=== PATIENT | male | born 2000 | race Two or more races ===

== ENCOUNTER 2025-08-22 11:18 | Emergency (ER) | payer MEDICAID, OTHER ==
[~2025-08-22] VITALS: Ht 180.3 cm; Wt 85.0 kg
[2025-08-22 11:23] VITALS: TEMP 97.9
[2025-08-22 12:25] VITALS: BP 129/75; PULSE 65; RESP 18; O2SAT 98
--- NOTE | 2025-08-22 12:38 | ED.PDOC ---
Foreign Body HPI Comments 25 y/o M, presents to the ED for CC of foreign body. Patient reports, that he had the helix of his left-ear pierced x1week ago and has now developed erythema and swelling to the area. Patient comments, that he believes the earring back has been engulfed by surrounding skin which has now prompted symptoms. Patient reports, taking antibiotics at home with no change in symptoms. Chief Complaint: Foreign Body Time Seen by MD: 12:30 History of Present Illness: Nurses Notes, Medications, Allergies Allergies: Coded Allergies: NO KNOWN ALLERGIES (Unverified , 08/22/25) Information Source: Patient Mode of Arrival: Ambulatory Timing: Weeks Duration: Since onset Severity: Moderate Prehospital treatment: Other (abx) Location: Left, Ear Foreign Body: [place], Other (earring back ) Removal: Was not attempted Associated signs and symptoms: None Past Medical History PAST MEDICAL HISTORY: Denies Surgical History: Denies all surgeries Family History Family History: Unknown Social History Smoker: Non-Smoker Alcohol: Denies ETOH Use Drugs: Denies Drug Use Lives In: Home Constitutional: denies: chills, diaphoresis, fatigue, fever, malaise, sweats, weakness, others EENTM: denies: blurred vision, double vision, ear bleeding, ear discharge, ear drainage, ear pain, ear ringing, eye pain, eye redness, hearing loss, mouth pain, mouth swelling, nasal discharge, nose bleeding, nose congestion, nose pain, photophobia, tearing, throat pain, throat swelling, voice changes, others Respiratory: denies: cough, hemoptysis, orthopnea, SOB at rest, shortness of breath, SOB with excertion, stridor, wheezing, others Cardiovascular: denies: chest pain, dizzy spells, diaphoresis, Dyspnea on exertion, edema, irregular heart beat, left arm pain, lightheadedness, palpitations, PND, syncope, others Gastrointestinal: denies: abdomen distended, abdominal pain, blood streaked bowels, constipated, diarrhea, dysphagia, difficulty swallowing, hematemesis, melena, nausea, poor appetite, poor fluid intake, rectal bleeding, rectal pain, vomiting, others Genitourinary: denies: burning, dysuria, flank pain, frequency, hematuria, incontinence, penile discharge, penile sore, pain, testicle pain, testicle swelling, urgency, others Neurological: denies: dizziness, fainting, headache, left sided numbness, left sided weakness, numbness, paresthesia, pre-existing deficit, right sided numbness, right sided weakness, seizure, speech problems, tingling, tremors, weakness, others Musculoskeletal: denies: back pain, gout, joint pain, joint swelling, muscle pain, muscle stiffness, neck pain, others Integumetry: denies: bruises, change in color, change in hair/nails, dryness, laceration, lesions, lumps, rash, wounds, others Allergic/Immunocompromised: denies: Difficulty Healing, Frequent Infections, Hives, Itching, others Hematologic/Lymphatic: denies: anemia, blood clots, easy bleeding, easy bruising, swollen glands, others Endocrine: denies: excessive hunger, excessive sweating, excessive thirst, excessive urination, flushing, intolerance to cold, intolerance to heat, unexplained weight gain, unexplained weight loss, others Psychiatric: denies: anxiety, bipolar disorder, depression, hopeless, panic disorder, schizophrenia, sleepless, suicidal, others All Other Systems: Reviewed and Negative Physical Exam General Appearance: Moderate Distress HEENT: Pharynx Normal, TMs Normal, Other (Tenderness and redness to the left ear with palpable foreign body) Neck: Full Range of Motion, Non-Tender, Normal, Normal Inspection Respiratory: Chest Non-Tender, Lungs Clear, No Accessory Muscle Use, No Respiratory Distress, Normal Breath Sounds Cardiovascular: No Edema, No JVD, No Murmur, No Gallop, Normal Peripheral Pulses, Regular Rate/Rhythm Breast Exam: Deferred Gastrointestinal: No Organomegaly, Non Tender, No Pulsatile Mass, Normal Bowel Sounds, Soft Genitalia: Deferred Pelvic: Deferred Rectal: Deferred Extremities: No calf tenderness, Normal capillary refill, Normal inspection, Normal range of motion, Non-tender, No pedal edema Musculoskeletal : Apperance: Normal 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 Was a procedure done?: Yes Sedation Sedation?: No Incision and Drainage Incision and Drainage: Other (Foreign body to the top of the left ear) Location Superior aspect of the left ear Anesthetic: Lidocaine Preparation: Betadine, Saline Incision and Wound: Other (Foreign body) Informed consent obtained: No Risks/benefits/alt described: No FB Differential Dx Differential Diagnosis: Foreign Body X-Ray, Labs, Meds, VS Vital Signs Date Time Temp Pulse Resp B/P (MAP) Pulse Ox O2 Delivery O2 Flow Rate FiO2 08/22/25 12:25 65 18 98 Room Air 08/22/25 12:25 65 18 129/75 (93) 98 08/22/25 11:23 97.9 77 18 137/94 96 97.9 The patient had the foreign body removed after the incision was made. At this time, the patient was placed on clindamycin. The patient has already been on Keflex. The patient tolerated the procedure well and is being discharged. Time of 1ST Reevaluation: 13:00 Reevaluation 1ST: Unchanged Patient Education/Counseling: Diagnosis, Treatment, Prognosis, Need For Follow Up Family Education/Counseling: No Family Present Departure 1 Departure Time of Disposition: 15:55 Impression: Primary Impression: Hx of retained foreign body fully removed Additional Impression: Cellulitis of left ear Disposition: 01 HOME / SELF CARE / HOMELESS Condition: Fair Discharged With: Self Critical Care Note Critical Care Time?: No Stability Stability form required: No Heart Score Heart Score: Heart Score Response (Comments) Value History N/A 0 EKG N/A 0 Age N/A 0 Risk Factors N/A 0 Troponin N/A 0 Total 0 I personally scribed for FELA GRIMM MD ([email or web address]) on 08/22/25 at 12:38. Electronically submitted by Lucinda Moyer ([email or web address]). FELA GRIMM MD Aug 22, 2025 12:38
== END 2025-08-22 15:28 | disposition left against medical advice (07) ==
LOC: ER 11:18
DX: H60.12 Cellulitis of left external ear (principal); Z87.821 Personal history of retained foreign body fully removed; Z88.1 Allergy status to other antibiotic agents
CPT/HCPCS: 10060